=== PATIENT | female | born 1965 | race African-American/Black ===

== ENCOUNTER 2021-03-25 19:14 | Observation (INO) ==
[2021-03-25 19:23] VITALS: BMI 31.3
--- NOTE | 2021-03-25 21:41 | DR.NAUSEAF ---
HPI Time Seen Time Seen by Provider: 03/25/21 21:38 Primary Care Physician Primary Care Physician: GONZALEZ [place] Complaints Chief Complaint Doctors Comments: 55 y/po female presents with N/V since awakening this AM. Has vomited x 8, started with diarrhea just COURT ASSISTANT. No blood in either. + abdominal pain - diffuse, cramping, off/on. Does not radiate. Nothing makes it better, nothing makes it worse. Also pulled her back today, moving a rocking chair. Having lumbar discomfort, worse with moving. H/o lumbar surgery in the past. Recently treat for R ear infection, with augmentin (finished without GI upset). Feeling hot and cold, no known fever. Chief Complaint:: PT STATES SHE WOKE UP THIS MORNING NAUSEATED AND VOMITING AND CANT KEEP ANYTHING DOWN. PT DENIES ANY FEVER OR ANY OTHER SYMPTOMS. PT STATES SHE WAS MOVING A ROCKING CHAIR AND AFTER THAT HER BACK STARTED HURTING. PT HAS HAD BACK SURGERY IN THE PAST. 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 COVID-19 Coronavirus risk:travel/contact w/high risk person: No Has patient experienced Coronavirus symptoms: No Reviewed Nurses Notes Reviewed: Yes Source History Provided: Patient Mode of Arrival Mode of Arrival: Ambulatory Timing Onset of Chief Complaint: 03/25/21 PMH PMH Past Medical History: Yes Past Medical History: Asthma Past Surgical History: Yes Surgical History: Hysterectomy, Ortho Surgery and Tonsillectomy Past Surgical History Comment: GALLBLADDER, CYST REMOVED IN RT BREAST Family History History of Family Medical Conditions: Yes Family Medical History: Diabetes Mellitus and Hypertension Social History Does patient currently use any type of tobacco product: No Have you used tobacco products in the last 12 months: No Type of Tobacco Use: None Does any household member use tobacco: No Alcohol Use: None Do you use any recreational Drugs:: No Lives With: Spouse Lives Where: Home Infectious screening In the last 2 months have you had wt loss of >10#?: NO Have you had fever, night sweats or hemotysis?: No Have you traveled outside the country in the last 6 months?: No Isolation: Standard ROS Review of Systems Constitutional: Weakness Eyes: No Symptoms Reported ENTM: No Symptoms Reported Respiratoy: Non-Productive Cough Cardiovascular: No Symptoms Reported Gastrointestinal/Abdominal: Abdominal Pain, Diarrhea, Nausea and Vomiting Genitourinary: No Symptoms Reported Neurological: No Symptoms Reported Musculoskeletal: Back Pain Integumentary: No Symptoms Reported Hematologic/Lymphatic: No Symptoms Reported Psychiatric: No Symptoms Reported All Other Systems: Reviewed and Negative PE Vital Signs Vitals: Temperature 97.8 F Pulse Rate [Bilateral Radial] 82 Pulse Rate 71 Respiratory Rate 20 Blood Pressure [Right Arm] 157/74 Blood Pressure 135/66 O2 Sat by Pulse Oximetry 97 General Limitations: No Limitations General Appearance: Alert, In No Apparent Distress and Other (ppears uncomfortable) Head Head Exam: Normal Inspection Eyes Eye exam: Normal Appearance ENT ENT Exam: Normal Exam Neck Neck Exam: Normal Inspection Chest Chest Inspection: Normal Inspection Respiratory Respiratory Exam: Normal Lung Sounds Bilat; negative Accessory Muscle Use and Respiratory Distress Respiratory Exam: Bilateral: Clear to Auscultation Cardiovascular Cardiovascular Exam: Regular Rate, Normal Rhythm and Normal Heart Sounds Abdominal Exam Abdominal Exam: Normal Inspection, Normal Bowel Sounds, Soft and Tenderness (mild, in all quadrants); negative Guarding and Rebound Extremities Extremities Exam: Normal Inspection Back Back Exam: Normal Inspection and Tenderness (paralumbar, with increased muscle tone) Neurologic Neurological Exam: Alert, Oriented X3 and CN II-XII Intact; negative Motor Sensory Deficit Psychiatric Psychiatric Exam: Normal Affect Skin Skin Exam: Warm and Dry MDM Differential Diagnosis Differential Diagnosis: Considerations may Include:: Bowel Obstruction, Food Poisoning and Gastroenteritis COURSE Treatment Treatment: W/u initiated. Given IV fluids, IV zofran/toradol. Labs show acceptable CBC, U/A. CMP shows AST/ALT to each be 1,200. Lipase normal. Liver enzymes few months ago were normal. Pt has been immunized for hepatitis A and B in the past. No high risk for hepatitis C. Hepatits panel sent out. CT of the abd/pelvis with oral and IV contrast done, no acute abnormalities. Pain returning, ginve IV morphine, + helping. Recommend observation admission for further treatment. Discussed with Dr Hernandez, covering, accepts the admission. ROR Labs Reviewed Laboratory Results Reviewed?: Yes Result Diagrams: 03/25/21 21:54 03/25/21 21:54 Laboratory: WBC 4.6 X10^3/uL (3.6-10.0) 03/25/21 21:54 RBC 5.17 X10^6/uL (3.5-5.4) 03/25/21 21:54 Hgb 12.3 g/dL (12.0-16.0) 03/25/21 21:54 Hct 38.2 % (36.0-47.0) 03/25/21 21:54 MCV 73.8 fL (80.0-100.0) L 03/25/21 21:54 MCH 23.8 pg (27.0-34.0) L 03/25/21 21:54 MCHC 32.2 g/dL (33.0-35.0) L 03/25/21 21:54 RDW 14.2 % (11.6-16.5) 03/25/21 21:54 Plt Count 219 X10^3/uL (150.0-450.0) 03/25/21 21:54 Plt Count Comment Adequate (ADEQUATE) 03/25/21 21:54 MPV 8.4 fL (7.4-11.0) 03/25/21 21:54 Neut % (Auto) 73.7 % (42.0-75.0) 03/25/21 21:54 Lymph % (Auto) 18.3 % (21.0-51.0) L 03/25/21 21:54 [place] % (Auto) 5.7 % (0.0-13.0) 03/25/21 21:54 Eos % (Auto) 1.4 % (0.9-2.9) 03/25/21 21:54 Baso % (Auto) 0.9 % (0.2-1.0) 03/25/21 21:54 Neut # (Auto) 3.4 x10^3/uL (2.2-4.8) 03/25/21 21:54 Lymph # (Auto) 0.8 X10^3/uL (1.3-2.9) L 03/25/21 21:54 [place] # (Auto) 0.3 x10^3/uL (0.3-0.8) 03/25/21 21:54 Eos # (Auto) 0.1 x10^3/uL (0.0-0.2) 03/25/21 21:54 Baso # (Auto) 0.0 X10^3/uL (0.0-0.1) 03/25/21 21:54 Absolute Nucleated RBC 0.1 /100WBC 03/25/21 21:54 Plt Morphology Comment Normal (NORMAL) 03/25/21 21:54 RBC Morphology Abnormal (NORMAL) A 03/25/21 21:54 Microcytosis Slight A 03/25/21 21:54 Sodium 133 mmol/L (136-145) L 03/25/21 21:54 Corrected Sodium TNP 03/25/21 21:54 Potassium 3.9 mmol/L (3.5-5.1) 03/25/21 21:54 Chloride 97 mmol/L (98-107) L 03/25/21 21:54 Carbon Dioxide 27.0 mmol/L (21-32) 03/25/21 21:54 BUN 17 mg/dL (7-18) 03/25/21 21:54 Creatinine 0.66 mg/dL (0.55-1.02) 03/25/21 21:54 Est GFR (MDRD) Af Amer > 60 (>60) 03/25/21 21:54 Est GFR (MDRD) Non-Af > 60 (>60) 03/25/21 21:54 Glucose 110 mg/dL (65-99) H 03/25/21 21:54 Calcium 9.7 mg/dL (8.5-10.1) 03/25/21 21:54 Corrected Calcium TNP 03/25/21 21:54 Total Bilirubin 0.70 mg/dL (0.2-1.0) 03/25/21 21:54 AST 1251 Units/L (15-37) H 03/25/21 21:54 ALT 1254 Units/L (12-78) H 03/25/21 21:54 Alkaline Phosphatase 216 Units/L (46-116) H 03/25/21 21:54 Total Protein 8.1 g/dL (6.4-8.2) 03/25/21 21:54 Albumin 4.1 g/dL (3.4-5.0) 03/25/21 21:54 Globulin 4.0 g/dL (2.5-4.5) 03/25/21 21:54 Albumin/Globulin Ratio 1.0 Ratio (1.1-2.1) L 03/25/21 21:54 Lipase 75 Units/L (73-393) 03/25/21 21:54 Specimen Type Clean catch urine 03/25/21 21:50 Urine Color Yellow (YELLOW) 03/25/21 21:50 Urine Appearance Clear (CLEAR) 03/25/21 21:50 Urine pH 8.0 (5.0 - 8.0) 03/25/21 21:50 Ur Specific [place] 1.010 (1.000-1.030) 03/25/21 21:50 Urine Protein Negative (NEGATIVE) 03/25/21 21:50 Urine Glucose (UA) Negative (NEGATIVE) 03/25/21 21:50 Urine Ketones Negative (NEGATIVE) 03/25/21 21:50 Urine Occult Blood Negative (NEGATIVE) 03/25/21 21:50 Urine Nitrite Negative (NEGATIVE) 03/25/21 21:50 Urine Bilirubin Negative (NEGATIVE) 03/25/21 21:50 Urine Urobilinogen Normal (NORMAL) 03/25/21 21:50 Ur Leukocyte Esterase Negative (NEGATIVE) 03/25/21 21:50 SARS CoV-2 RNA Rapid GRANT Negative (NEGATIVE) 03/25/21 23:10 Other Results Comments: AST/ASLT - 1,200 each. Opioid Opioid Risk Tool Age (Isaias box if 16-45): No History of Preadolescent Sexual Abuse: No Total: 0 Total Score Risk Category: Low Risk Copyright: Tino VASQUEZ predicting aberrant behaviors Diagnosis Discharge Problem: Nausea and vomiting in adult patient, Hepatitis Abdominal pain Qualifiers: Abdominal location: generalized Qualified Code(s): R10.84 - Generalized abdominal pain
[2021-03-25] MEDS ORDERED: ZOFRAN INJ 4 MG VIAL IVP ONE (21:44)
[2021-03-25] MEDS ORDERED: TORADOL 30 MG VIAL IVP ONE (21:44)
[2021-03-25] MEDS ORDERED: NS 1,000 ML IV 1,000 ML IV ONE (21:44)
[2021-03-25] MEDS ORDERED: TORADOL 30 MG VIAL ONE (21:59)
[2021-03-25] MEDS ORDERED: ZOFRAN INJ 4 MG VIAL ONE (21:59)
[2021-03-25] MEDS ORDERED: NS 1,000 ML IV 1,000 ML ONE (21:59)
[2021-03-25 22:06] LABS: BILIRUBIN,URINE NEGATIVE (NEGATIVE); BLOOD/HEMOGLOBIN,URINE NEGATIVE (NEGATIVE); GLUCOSE, URINE NEGATIVE (NEGATIVE); KETONES,URINE NEGATIVE (NEGATIVE); LEUKOCYTE ESTERASE ,URINE NEGATIVE (NEGATIVE); NITRITES,URINE NEGATIVE (NEGATIVE); PROTEIN,URINE NEGATIVE (NEGATIVE); UROBILINOGEN,URINE NORMAL (NORMAL)
[2021-03-25 22:06] LABS: BASOPHILS % (AUTO) 0.9 % (0.2-1.0); EOSINOPHILS # (AUTO) 0.1 x10^3/uL (0.0-0.2); EOSINOPHILS % (AUTO) 1.4 % (0.9-2.9); HEMATOCRIT 38.2 % (36.0-47.0); HEMOGLOBIN 12.3 g/dL (12.0-16.0); LYMPHOCYTES # (AUTO) 0.8 X10^3/uL (1.3-2.9); LYMPHOCYTES % (AUTO) 18.3 % (21.0-51.0); MEAN CORPUSCULAR HEMOGLOBIN 23.8 pg (27.0-34.0); MEAN CORPUSCULAR HGB CONC 32.2 g/dL (33.0-35.0); MEAN CORPUSCULAR VOLUME 73.8 fL (80.0-100.0); MEAN PLATELET VOLUME 8.4 fL (7.4-11.0); MONOCYTES # (AUTO) 0.3 x10^3/uL (0.3-0.8); MONOCYTES % (AUTO) 5.7 % (0.0-13.0); NEUTROPHILS # (AUTO) 3.4 x10^3/uL (2.2-4.8); NEUTROPHILS % (AUTO) 73.7 % (42.0-75.0); PLATELET COUNT 219 X10^3/uL (150.0-450.0); RED BLOOD COUNT 5.17 X10^6/uL (3.5-5.4); RED CELL DISTRIBUTION WIDTH 14.2 % (11.6-16.5); WHITE BLOOD COUNT 4.6 X10^3/uL (3.6-10.0)
[2021-03-25 22:16] LABS: APPEARANCE,URINE CLEAR (CLEAR); COLOR,URINE YELLOW (YELLOW)
[2021-03-25 22:19] LABS: PLATELET MORPHOLOGY COMMENT NORMAL (NORMAL)
[2021-03-25 22:20] LABS: MICROCYTOSIS SLIGHT
[2021-03-25 22:21] LABS: ALBUMIN 4.1 g/dL (3.4-5.0); ALKALINE PHOSPHATASE 216 Units/L (46-116); BLOOD UREA NITROGEN 17 mg/dL (7-18); CALCIUM 9.7 mg/dL (8.5-10.1); CHLORIDE 97 mmol/L (98-107); CREATININE 0.66 mg/dL (0.55-1.02); LIPASE 75 Units/L (73-393); SODIUM 133 mmol/L (136-145); TOTAL PROTEIN 8.1 g/dL (6.4-8.2); eGFR NON BLACK RACES > 60 (>60)
[2021-03-25 22:34] LABS: ALANINE AMINOTRANSFERASE 1254 Units/L (12-78); ASPARTATE AMINO TRANSFERASE 1251 Units/L (15-37)
[2021-03-25] MEDS ORDERED: NS 100 ML IV 100 ML ONE (22:58)
[2021-03-26] MEDS ORDERED: NS 1,000 ML IV 1,000 ML IV ONE (00:30)
[2021-03-26] MEDS ORDERED: NS 1,000 ML IV 1,000 ML ONE (00:41)
[2021-03-26] MEDS ORDERED: MORPHINE SULFATE INJ 4 MG IVP ONE (02:11)
[2021-03-26] MEDS ORDERED: MORPHINE SULFATE INJ 4 MG ONE (02:21)
--- NOTE | 2021-03-26 02:43 | CT ---
STUDY: CT ABDOMEN AND PELVIS WITH IV CONTRASTCOMPARISON: NoneTECHNIQUE: Axial images were acquired of the abdomen and pelvis with IV contrast. Sagittal and coronal reformatted images were provided. All images were reviewed in a variety of windows and levels.RADIATION REDUCTION TECHNIQUE: Automated exposure control, adjustment of the mA and/or kV according to patient size, or iterative reconstruction techniques were used.HISTORY: WOKE UP THIS MORNING NAUSEATED AND VOMITING AND CANT KEEP ANYTHING DOWN. PT DENIES ANY FEVER OR ANY OTHER SYMPTOMS. PT STATES SHE WAS MOVING A ROCKING CHAIR AND AFTER THAT HER BACK STARTED HURTING.FINDINGS:LOWER THORAX: The visualized lower lung zones are clear. The heart size is within normal limits. There is no evidence of a pericardial effusion.LIVER: No intrahepatic focal lesions are seen. No evidence of intrahepatic or extrahepatic duct dilation.GALLBLADDER: The gallbladder has been surgically removed.SPLEEN: The spleen enhances homogenously and is unremarkable.PANCREAS: The pancreas enhances homogenously and is unremarkable.AGRENAL GLANDS: The adrenal glands enhance homogenously and are unremarkable.: The kidneys enhance homogenously. Their collecting system is of normal caliber.The patient is status post hysterectomy.URINARY BLADDER: The urinary bladder is unremarkable. There are no soft tissue masses seen in the urinary bladder.VESSELS: The abdominal aorta is normal in size without evidence of aneurysm or dissection. The celiac artery, superior mesenteric artery, cachil dehe renal arteries, and inferior mesenteric artery are patent.GI: Postsurgical changes seen the stomach.Please correlate with patient's past surgical history. The portions small appears grossly few scattered diverticula are seen without evidence of diverticulitis. There are no inflammatory changes seen in the right lower quadrant to suggest secondary signs of acute appendicitis. The appendix is not visualized on this exam.LYMPHNODES AND MESSENTERY: There is no evidence of retroperitoneal lymphadenopathy.BONES: The visualized bones demonstrate degenerative changes. There are no concerning lytic or blastic lesions identified. Postsurgical changes of the lower lumbar spine is noted.IMPRESSION:- Status post cholecystectomy and hysterectomy- No evidence of obstructive uropathy- No evidence of diverticulitis- Postsurgical changes in the stomach are seen. This may be from gastric bypass. Please correlate with patient's past surgical history.Electronically signed by: Nabil Buchanan (Mar 26, 2021 02:41:54)
[2021-03-26] MEDS ORDERED: ZOFRAN INJ 4 MG VIAL IVP ONE (04:54)
[2021-03-26] MEDS ORDERED: ZOFRAN INJ 4 MG VIAL ONE ×2 (04:55→07:47)
[2021-03-26] MEDS ORDERED: D5 1/2 NS 1,000 ML 1,000 ML IV ONE (06:18)
[2021-03-26] MEDS: D5 1/2 NS 1,000 ML 1,000 ML IV SCH ×3 (06:26→22:00)
[2021-03-26] MEDS: ZOFRAN INJ 4 MG VIAL IVP PRN (07:50)
[2021-03-26 08:41] LABS: BASOPHILS % (AUTO) 0.8 % (0.2-1.0); EOSINOPHILS # (AUTO) 0.1 x10^3/uL (0.0-0.2); HEMATOCRIT 36.5 % (36.0-47.0); HEMOGLOBIN 11.5 g/dL (12.0-16.0); LYMPHOCYTES # (AUTO) 1.4 X10^3/uL (1.3-2.9); LYMPHOCYTES % (AUTO) 33.8 % (21.0-51.0); MEAN CORPUSCULAR HEMOGLOBIN 23.4 pg (27.0-34.0); MEAN CORPUSCULAR HGB CONC 31.4 g/dL (33.0-35.0); MEAN CORPUSCULAR VOLUME 74.6 fL (80.0-100.0); MEAN PLATELET VOLUME 8.5 fL (7.4-11.0); MONOCYTES # (AUTO) 0.3 x10^3/uL (0.3-0.8); MONOCYTES % (AUTO) 7.9 % (0.0-13.0); NEUTROPHILS # (AUTO) 2.2 x10^3/uL (2.2-4.8); NEUTROPHILS % (AUTO) 54.5 % (42.0-75.0); PLATELET COUNT 188 X10^3/uL (150.0-450.0); RED BLOOD COUNT 4.89 X10^6/uL (3.5-5.4); RED CELL DISTRIBUTION WIDTH 14.2 % (11.6-16.5)
[2021-03-26 08:44] LABS: ALANINE AMINOTRANSFERASE 852 Units/L (12-78); ALBUMIN 3.5 g/dL (3.4-5.0); ALKALINE PHOSPHATASE 186 Units/L (46-116); ASPARTATE AMINO TRANSFERASE 494 Units/L (15-37); BLOOD UREA NITROGEN 13 mg/dL (7-18); CALCIUM 8.9 mg/dL (8.5-10.1); CHLORIDE 102 mmol/L (98-107); CREATININE 0.68 mg/dL (0.55-1.02); SODIUM 137 mmol/L (136-145); TOTAL PROTEIN 7.3 g/dL (6.4-8.2); eGFR NON BLACK RACES > 60 (>60)
[2021-03-26 08:53] LABS: MICROCYTOSIS SLIGHT; PLATELET MORPHOLOGY COMMENT NORMAL (NORMAL)
[2021-03-26] MEDS ORDERED: PHENERGAN INJ 25 MG IM ONE (08:59)
[2021-03-26] MEDS: PHENERGAN INJ 25 MG IM PRN (09:05)
[2021-03-26] MEDS: SILVADENE TOP SCH ×2 (09:09→20:55)
--- NOTE | 2021-03-26 11:18 | DR.H&P ---
H&P History & Physical for Day of: H&P Date: 03/26/21 Chief Complaint Chief Complaint: Nausea & Vomiting/ Back Pain Allergies Allergies Allergy/AdvReac Type Severity Reaction Status Date / Time No Known Drug Allergies Allergy Verified 10/27/20 21:22 History of Present Illness History of Present Illness: This is a 55-year-old Female who presented to the [facility] ED with 1 day history of nausea and vomiting. It started on the morning of 03/25/21. She vomited 8 times and now she has diarrhea. She has recently taken Augmentin for a right ear infection. She also reports increased low back pain. Her back pain is chronic as she has had back and neck surgeries in the past years. Work-up in the ED revealed she had significantly elevated LFT's of over a 1000 each. The ED physician ordered a Hepatitis panel. She is currently receiving IVF and Zofran for nausea and Toradol for chronic low back pain. Will plan on consulting Dr. Herve GONZALEZ for any further workup related to her abnormal LFT's. Past Medical History Past Medical History: Asthma Past Surgical History Surgical History: , Hysterectomy, Ortho Surgery and Tonsillectomy Family History Family Medical History: Diabetes Mellitus and Hypertension Social History Does patient currently use any type of tobacco product: No Have you used tobacco products in the last 12 months: No Type of Tobacco Use: None Does any household member use tobacco: No Alcohol Use: None Drug Use: None Medications Home Medications: No Known Drug Allergies Allergy (Verified 10/27/20 21:22) Labs Result Diagrams: 03/26/21 08:27 03/26/21 08:27 Labs: Laboratory WBC 4.0 X10^3/uL (3.6-10.0) 03/26/21 08:27 RBC 4.89 X10^6/uL (3.5-5.4) 03/26/21 08:27 Hgb 11.5 g/dL (12.0-16.0) L 03/26/21 08:27 Hct 36.5 % (36.0-47.0) 03/26/21 08:27 MCV 74.6 fL (80.0-100.0) L 03/26/21 08:27 MCH 23.4 pg (27.0-34.0) L 03/26/21 08:27 MCHC 31.4 g/dL (33.0-35.0) L 03/26/21 08: RDW 14.2 % (11.6-16.5) 03/26/21 08:27 Plt Count 188 X10^3/uL (150.0-450.0) 03/26/21 08:27 Plt Count Comment Adequate (ADEQUATE) 03/26/21 08: MPV 8.5 fL (7.4-11.0) 03/26/21 08:27 Neut % (Auto) 54.5 % (42.0-75.0) 03/26/21 08: Lymph % (Auto) 33.8 % (21.0-51.0) 03/26/21 08: [place] % (Auto) 7.9 % (0.0-13.0) 03/26/21 08: Eos % (Auto) 3.0 % (0.9-2.9) H 03/26/21 08: Baso % (Auto) 0.8 % (0.2-1.0) 03/26/21 08:27 Neut # (Auto) 2.2 x10^3/uL (2.2-4.8) 03/26/21 08:27 Lymph # (Auto) 1.4 X10^3/uL (1.3-2.9) 03/26/21 08:27 [place] # (Auto) 0.3 x10^3/uL (0.3-0.8) 03/26/21 08:27 Eos # (Auto) 0.1 x10^3/uL (0.0-0.2) 03/26/21 08:27 Baso # (Auto) 0.0 X10^3/uL (0.0-0.1) 03/26/21 08:27 Absolute Nucleated RBC 0.1 /100WBC 03/26/21 08:27 Plt Morphology Comment Normal (NORMAL) 03/26/21 08: RBC Morphology Abnormal (NORMAL) A 03/26/21 08:27 Microcytosis Slight A 03/26/21 08:27 Sodium 137 mmol/L (136-145) 03/26/21 08:27 Corrected Sodium TNP 03/26/21 08:27 Potassium 3.8 mmol/L (3.5-5.1) 03/26/21 08:27 Chloride 102 mmol/L (98-107) 03/26/21 08:27 Carbon Dioxide 29.0 mmol/L (21-32) 03/26/21 08:27 BUN 13 mg/dL (7-18) 03/26/21 08:27 Creatinine 0.68 mg/dL (0.55-1.02) 03/26/21 08:27 Est GFR (MDRD) Af Amer > 60 (>60) 03/26/21 08:27 Est GFR (MDRD) Non-Af > 60 (>60) 03/26/21 08:27 Glucose 93 mg/dL (65-99) 03/26/21 08:27 Calcium 8.9 mg/dL (8.5-10.1) 03/26/21 08:27 Corrected Calcium TNP 03/26/21 08:27 Total Bilirubin 0.60 mg/dL (0.2-1.0) 03/26/21 08:27 AST 494 Units/L (15-37) H 03/26/21 08:27 ALT 852 Units/L (12-78) H 03/26/21 08:27 Alkaline Phosphatase 186 Units/L (46-116) H 03/26/21 08:27 Total Protein 7.3 g/dL (6.4-8.2) 03/26/21 08:27 Albumin 3.5 g/dL (3.4-5.0) 03/26/21 08:27 Globulin 3.8 g/dL (2.5-4.5) 03/26/21 08:27 Albumin/Globulin Ratio 0.9 Ratio (1.1-2.1) L 03/26/21 08:27 Lipase 75 Units/L (73-393) 03/25/21 21:54 Specimen Type Clean catch urine 03/25/21 21:50 Urine Color Yellow (YELLOW) 03/25/21 21:50 Urine Appearance Clear (CLEAR) 03/25/21 21:50 Urine pH 8.0 (5.0 - 8.0) 03/25/21 21:50 Ur Specific [place] 1.010 (1.000-1.030) 03/25/21 21:50 Urine Protein Negative (NEGATIVE) 03/25/21 21:50 Urine Glucose (UA) Negative (NEGATIVE) 03/25/21 21:50 Urine Ketones Negative (NEGATIVE) 03/25/21 21:50 Urine Occult Blood Negative (NEGATIVE) 03/25/21 21:50 Urine Nitrite Negative (NEGATIVE) 03/25/21 21:50 Urine Bilirubin Negative (NEGATIVE) 03/25/21 21:50 Urine Urobilinogen Normal (NORMAL) 03/25/21 21:50 Ur Leukocyte Esterase Negative (NEGATIVE) 03/25/21 21:50 SARS CoV-2 RNA Rapid GRANT Negative (NEGATIVE) 03/25/21 23:10 Review of Systems Constitutional: Weakness Eyes: No Symptoms Reported ENT: No Symptoms Reported Respiratory: No Symptoms Reported Cardiovascular: No Symptoms Reported Gastrointestinal: Nausea, Vomiting and Diarrhea Genitourinary: No Symptoms Reported Musculoskeletal: Back Pain and Neck Pain Skin: Wound Neurological: No Symptoms Reported Physical Exam Vital Signs: Temperature 98.2 F Pulse Rate [Right] 82 Pulse Rate [Bilateral Radial] 82 Pulse Rate 71 Respiratory Rate 16 Blood Pressure [Right Arm] 173/75 Blood Pressure 135/66 O2 Sat by Pulse Oximetry 100 Oriented: Normal Eyes: Normal Ear: Normal Nose: Normal Throat: Normal Respiratory: Clear Throughout Cardiovascular: Normal : Normal Auscultation: Bowel Sounds: Normal Palpation: Normal Tenderness: Normal Skin: Vesicular Musculoskeletal: Back:Lumbar Psychiatric: Normal Mood Description: Calm Affect: Normal Speech Pattern: Clear Assessment/Plan (1) Nausea and vomiting in adult patient: Narrative Support Text: Sammie is not working patient reports. Status: Acute Plan: Will add Phenergan for nauesa. (2) Hepatitis: Status: Acute Plan: Consulting Dr. Herve GONZALEZ. (3) HTN (hypertension): Status: Acute Plan: Will start patient on Amlodipine 10 mg daily. (4) Abdominal pain: Qualifiers: Abdominal location: generalized Qualified Code(s): R10.84 - Generalized abdominal pain Status: Acute (5) Chronic low back pain: Status: Acute Plan: IV Toradol. (6) Chronic neck pain: Status: Acute Plan: IV Toradol (7) Abnormal LFTs: Status: Acute (8) Nausea & vomiting: Status: Acute Plan: Added PRN Phenergan this am. (9) Diarrhea: Status: Acute Plan: Will check for C. Diff. Review H&P Reviewed: Yes Patient was examined?: Yes
--- NOTE | 2021-03-26 12:22 | DR.CONSULT ---
Consult - Consultation for Day of: Date: 03/26/21 - Chief Complaint Chief Complaint: Patient referred for abdominal pain, nausea, vomiting and diarrhea. Patient with complaints of epigastric pain, nausea and vomiting that started yesterday. - History of Present Illness History of Present Illness: Patient referred for abdominal pain, nausea, vomiting and diarrhea. Patient with complaints of epigastric pain x 1 month, nausea and vomiting that started yesterday. Patient denies dysphagia, dyspepsia, constipation, diarrhea, melena and hematochezia. Last colon was within the last [address] Mendoza patient states she had polyps. Last EGD was within the last 5 years with verona states that she has nicki esophagitis and esophageal stricture. Abdomen and pelvis CT showed Status post cholecystectomy and. hysterectomy, No evidence of obstructive uropathy, No evidence of diverticulitis, Postsurgical changes in the stomach are seen. This may be. from gastric bypass. Please correlate with patient's past surgical history. Hgb 11.5, hct 36.5, Plt 188, BUN 13, Creatinine 0.68, T. Bili 0.6, AST 494, ALT 852, ALP 186 - Past Medical History Past Medical History: Asthma - Past Surgical History Surgical History: , Cholecystectomy, Hysterectomy, Ortho Surgery, Tonsillectomy, Other (gastric bypass, Cyst removal from breat, Back Surgery, Neck Surgery x2) - Family History Family Medical History: Diabetes Mellitus, Hypertension - Social History Does patient currently use any type of tobacco product: No Have you used tobacco products in the last 12 months: No Type of Tobacco Use: None Does any household member use tobacco: No Alcohol Use: None Drug Use: None - Medications Home Medications: No Known Drug Allergies Allergy (Verified 10/27/20 21:22) - Review of Systems Gastrointestinal: See HPI, Nausea, Vomiting, Abdominal Pain (epigastric). denies: Diarrhea, Constipation, Melena, Hematochezia, Other - Physical Exam Vital Signs: Temperature 98.2 F Pulse Rate [Right] 82 Pulse Rate [Bilateral Radial] 82 Pulse Rate 71 Respiratory Rate 16 Blood Pressure [Right Arm] 173/75 Blood Pressure 135/66 O2 Sat by Pulse Oximetry 100 Oriented: Normal Eyes: Normal Ear: Normal Throat: Normal Respiratory: Clear Throughout Cardiovascular: Normal Auscultation: Bowel Sounds: Normal Palpation: Normal, Other (no distnetion). negative: Spleen Enlarged, Liver Enlarged, Mass Pulsatile Tenderness: Normal (non tender) Skin: Normal Musculoskeletal: Normal Psychiatric: Normal Mood Description: Calm Affect: Normal Speech Pattern: Clear, Appropriate - Plan Plan: Assessment. 1. Nausea, vomiting, epigastric pain r/o gastric ulcer. 2. Abnormal LFTs. 3. History fo colon polyps. Plan. 1. Protonix IV, Zofran IV, EGD today. 2. Abnormal LFT panel, Hepatitis Profile, STE[place]G Fibrosure, Monitor LFTs. Plan reviewed with Dr. Edgar - Allergies Allergies/Adverse Reactions: Allergies Allergy/AdvReac Type Severity Reaction Status Date / Time No Known Drug Allergies Allergy Verified 10/27/20 21:22
[2021-03-26 13:57] LABS: IRON 118 ug/dL (50-175)
[2021-03-26] MEDS ORDERED: LR 1,000 ML IV 1,000 ML IV ONE (15:03)
[2021-03-26] MEDS ORDERED: DIPRIVAN VIAL 20 ML ONE (15:08)
[2021-03-26] MEDS: NEURONTIN CAP 100 MG PO SCH ×2 (17:07→22:00)
[2021-03-26] MEDS: DIFLUCAN PO SCH (17:08)
[2021-03-26] MEDS: NORVASC TAB 10 MG PO SCH (17:09)
[2021-03-26] MEDS: PriLOSEC PO SCH (20:55)
[2021-03-26] MEDS: ZANAFLEX PO PRN (20:55)
[2021-03-27 04:56] LABS: BASOPHILS % (AUTO) 0.7 % (0.2-1.0); EOSINOPHILS # (AUTO) 0.1 x10^3/uL (0.0-0.2); EOSINOPHILS % (AUTO) 2.5 % (0.9-2.9); HEMATOCRIT 33.2 % (36.0-47.0); HEMOGLOBIN 10.5 g/dL (12.0-16.0); LYMPHOCYTES # (AUTO) 1.8 X10^3/uL (1.3-2.9); LYMPHOCYTES % (AUTO) 42.2 % (21.0-51.0); MEAN CORPUSCULAR HEMOGLOBIN 23.5 pg (27.0-34.0); MEAN CORPUSCULAR HGB CONC 31.7 g/dL (33.0-35.0); MEAN CORPUSCULAR VOLUME 74.3 fL (80.0-100.0); MEAN PLATELET VOLUME 8.6 fL (7.4-11.0); MONOCYTES # (AUTO) 0.3 x10^3/uL (0.3-0.8); MONOCYTES % (AUTO) 7.8 % (0.0-13.0); NEUTROPHILS % (AUTO) 46.8 % (42.0-75.0); PLATELET COUNT 183 X10^3/uL (150.0-450.0); RED BLOOD COUNT 4.47 X10^6/uL (3.5-5.4); RED CELL DISTRIBUTION WIDTH 14.3 % (11.6-16.5); WHITE BLOOD COUNT 4.3 X10^3/uL (3.6-10.0)
[2021-03-27 05:10] LABS: ALANINE AMINOTRANSFERASE 562 Units/L (12-78); ALBUMIN 3.2 g/dL (3.4-5.0); ALKALINE PHOSPHATASE 146 Units/L (46-116); ASPARTATE AMINO TRANSFERASE 155 Units/L (15-37); BLOOD UREA NITROGEN 11 mg/dL (7-18); CALCIUM 8.9 mg/dL (8.5-10.1); CARBON DIOXIDE 28.9 mmol/L (21-32); CHLORIDE 105 mmol/L (98-107); COR CA(FOR HYPOALB) 9.5 mg/dL (8.5-10.1); CREATININE 0.61 mg/dL (0.55-1.02); SODIUM 139 mmol/L (136-145); TOTAL PROTEIN 6.5 g/dL (6.4-8.2); eGFR NON BLACK RACES > 60 (>60)
[2021-03-27 05:36] LABS: HYPOCHROMASIA 1+; MICROCYTOSIS 1+; PLATELET MORPHOLOGY COMMENT NORMAL (NORMAL)
[2021-03-27] MEDS: D5 1/2 NS 1,000 ML 1,000 ML IV SCH ×3 (05:55→21:20)
[2021-03-27] MEDS: ZANAFLEX PO PRN ×3 (05:56→21:20)
[2021-03-27] MEDS: NEURONTIN CAP 100 MG PO SCH ×3 (05:56→21:20)
[2021-03-27] MEDS: DIFLUCAN PO SCH (08:12)
[2021-03-27] MEDS: PriLOSEC PO SCH ×2 (08:13→21:20)
[2021-03-27] MEDS: NORVASC TAB 10 MG PO SCH (08:13)
[2021-03-27] MEDS: SILVADENE TOP SCH ×2 (08:13→21:20)
[2021-03-27] MEDS: ZOFRAN INJ 4 MG VIAL IVP PRN (08:40)
[2021-03-27] MEDS ORDERED: DIFLUCAN PO SCH (09:00)
[2021-03-27] MEDS: PHENERGAN INJ 25 MG IM PRN (09:36)
--- NOTE | 2021-03-27 14:56 | PCM.PROG ---
Progress Note Progress Note for Day of Date of Exam: 03/27/21 Subjective Subjective: Patient feels better this morning. She is still having some nausea at this time. Had EGD this am which showed Teresa Esophagitis, distal Esophagitis, mild stricture and erosive gastritis. LFT's are trending down but have not normalized. Dr. Edgar has ordered additional labs regarding Abnormal LFT's. Will continue treatment and recheck LFT's in am. Plan on discharge home in am. Past Medical Family Social History Past Med/Fam/Surg Hx: No changes since H&P Allergies: Allergies No Known Drug Allergies Allergy (Verified 10/27/20 21:22) Review of Systems ROS: No change since H&P Vital Signs and I&O's Vital Signs: Temperature 97.9 F Pulse Rate [Right] 76 Pulse Rate [Bilateral Radial] 82 Pulse Rate 71 Respiratory Rate 24 Blood Pressure [Right Arm] 143/79 Blood Pressure 135/66 O2 Sat by Pulse Oximetry 100 Intake and Output: Intake & Output 03/25/21 03/26/21 03/27/21 03/28/21 11:59 11:59 11:59 11:59 Intake Total 1250 / 1250 3600 / 3600 Balance 1250 / 1250 3600 / 3600 Physical Exam Oriented: Normal Eyes: Normal Ear: Normal Nose: Normal Throat: Normal Respiratory: Normal Cardiovascular: Normal : Normal Auscultation: Bowel Sounds: Normal Palpation: Normal Tenderness: Normal (non tender) Skin: Normal Musculoskeletal: Normal Psychiatric: Normal Mood Description: Calm Affect: Normal Speech Pattern: Clear and Appropriate Laboratory and Diagnostics Result Diagrams: 03/27/21 04:35 03/27/21 04:35 Labs: Laboratory WBC 4.3 X10^3/uL (3.6-10.0) 03/27/21 04:35 RBC 4.47 X10^6/uL (3.5-5.4) 03/27/21 04:35 Hgb 10.5 g/dL (12.0-16.0) L 03/27/21 04:35 Hct 33.2 % (36.0-47.0) L 03/27/21 04:35 MCV 74.3 fL (80.0-100.0) L 03/27/21 04:35 MCH 23.5 pg (27.0-34.0) L 03/27/21 04:35 MCHC 31.7 g/dL (33.0-35.0) L 03/27/21 04:35 RDW 14.3 % (11.6-16.5) 03/27/21 04:35 Plt Count 183 X10^3/uL (150.0-450.0) 03/27/21 04:35 Plt Count Comment Adequate (ADEQUATE) 03/27/21 04:35 MPV 8.6 fL (7.4-11.0) 03/27/21 04:35 Neut % (Auto) 46.8 % (42.0-75.0) 03/27/21 04:35 Lymph % (Auto) 42.2 % (21.0-51.0) 03/27/21 04:35 [place] % (Auto) 7.8 % (0.0-13.0) 03/27/21 04:35 Eos % (Auto) 2.5 % (0.9-2.9) 03/27/21 04:35 Baso % (Auto) 0.7 % (0.2-1.0) 03/27/21 04:35 Neut # (Auto) 2.0 x10^3/uL (2.2-4.8) L 03/27/21 04:35 Lymph # (Auto) 1.8 X10^3/uL (1.3-2.9) 03/27/21 04:35 [place] # (Auto) 0.3 x10^3/uL (0.3-0.8) 03/27/21 04:35 Eos # (Auto) 0.1 x10^3/uL (0.0-0.2) 03/27/21 04:35 Baso # (Auto) 0.0 X10^3/uL (0.0-0.1) 03/27/21 04:35 Absolute Nucleated RBC 0.1 /100WBC 03/27/21 04:35 Plt Morphology Comment Normal (NORMAL) 03/27/21 04:35 RBC Morphology Abnormal (NORMAL) A 03/27/21 04:35 Hypochromasia 1+ A 03/27/21 04:35 Microcytosis 1+ A 03/27/21 04:35 Sodium 139 mmol/L (136-145) 03/27/21 04:35 Corrected Sodium TNP 03/27/21 04:35 Potassium 3.6 mmol/L (3.5-5.1) 03/27/21 04:35 Chloride 105 mmol/L (98-107) 03/27/21 04:35 Carbon Dioxide 28.9 mmol/L (21-32) 03/27/21 04:35 BUN 11 mg/dL (7-18) 03/27/21 04:35 Creatinine 0.61 mg/dL (0.55-1.02) 03/27/21 04:35 Est GFR (MDRD) Af Amer > 60 (>60) 03/27/21 04:35 Est GFR (MDRD) Non-Af > 60 (>60) 03/27/21 04:35 Glucose 100 mg/dL (65-99) H 03/27/21 04:35 POC Glucose (mg/dL) 76 mg/dL (65-99) 03/27/21 04:22 Calcium 8.9 mg/dL (8.5-10.1) 03/27/21 04:35 Corrected Calcium 9.5 mg/dL (8.5-10.1) 03/27/21 04:35 Iron 118 ug/dL (50-175) 03/26/21 12:35 Transferrin 261 mg/dL (202-364) 03/26/21 12:35 Ferritin 143 ng/mL (8-252) 03/26/21 12:35 Total Bilirubin 0.40 mg/dL (0.2-1.0) 03/27/21 04:35 AST 155 Units/L (15-37) H 03/27/21 04:35 ALT 562 Units/L (12-78) H 03/27/21 04:35 Alkaline Phosphatase 146 Units/L (46-116) H 03/27/21 04:35 Total Protein 6.5 g/dL (6.4-8.2) 03/27/21 04:35 Albumin 3.2 g/dL (3.4-5.0) L 03/27/21 04:35 Globulin 3.3 g/dL (2.5-4.5) 03/27/21 04:35 Albumin/Globulin Ratio 1.0 Ratio (1.1-2.1) L 03/27/21 04:35 Lipase 75 Units/L (73-393) 03/25/21 21:54 Specimen Type Clean catch urine 03/25/21 21:50 Urine Color Yellow (YELLOW) 03/25/21 21:50 Urine Appearance Clear (CLEAR) 03/25/21 21:50 Urine pH 8.0 (5.0 - 8.0) 03/25/21 21:50 Ur Specific [place] 1.010 (1.000-1.030) 03/25/21 21:50 Urine Protein Negative (NEGATIVE) 03/25/21 21:50 Urine Glucose (UA) Negative (NEGATIVE) 03/25/21 21:50 Urine Ketones Negative (NEGATIVE) 03/25/21 21:50 Urine Occult Blood Negative (NEGATIVE) 03/25/21 21:50 Urine Nitrite Negative (NEGATIVE) 03/25/21 21:50 Urine Bilirubin Negative (NEGATIVE) 03/25/21 21:50 Urine Urobilinogen Normal (NORMAL) 03/25/21 21:50 Ur Leukocyte Esterase Negative (NEGATIVE) 03/25/21 21:50 Stl C. diff Tox B Gene Negative (NEGATIVE) 03/26/21 18:25 Stl C. diff [id number] Presumptive negative (NEGATIVE) 03/26/21 18:25 Stool H. pylori Ag Negative (NEGATIVE) 03/26/21 18:25 SARS CoV-2 RNA Rapid GRANT Negative (NEGATIVE) 03/25/21 23:10 Tissue Pathology To follow 03/26/21 15:12 Radiology Reviewed: Yes Plan (1) Nausea and vomiting in adult patient: Status: Acute Narrative Support Text: Much improved. Plan: Will add Phenergan for nauesa. (2) Hepatitis: Status: Acute Plan: CMP in am. If LFT's continue to improve will discharge home in am. (3) HTN (hypertension): Status: Acute Narrative Support Text: Much improved. Plan: Amlodipine 10 mg daily. (4) Abdominal pain: Status: Acute Qualifiers: Abdominal location: generalized Qualified Code(s): R10.84 - Generalized abdominal pain (5) Chronic low back pain: Status: Acute Plan: IV Toradol. (6) Chronic neck pain: Status: Acute Plan: IV Toradol (7) Abnormal LFTs: Status: Acute (8) Nausea & vomiting: Status: Acute Plan: Added PRN Phenergan this am. (9) Diarrhea: Status: Resolved Plan: C. Diff. negative. (10) Teresa esophagitis: Status: Acute Plan: Diflucan (11) Esophagitis: Status: Acute Plan: omeprazole 40 mg bid (12) Erosive gastritis: Status: Acute Plan: Omeprazole 40 mg bid (13) Esophageal stricture: Status: Acute Plan: patient underwent dilation.
[2021-03-28 05:26] LABS: ALANINE AMINOTRANSFERASE 371 Units/L (12-78); ALBUMIN 2.9 g/dL (3.4-5.0); ALKALINE PHOSPHATASE 126 Units/L (46-116); ASPARTATE AMINO TRANSFERASE 54 Units/L (15-37); BLOOD UREA NITROGEN 10 mg/dL (7-18); CALCIUM 8.5 mg/dL (8.5-10.1); CARBON DIOXIDE 31.3 mmol/L (21-32); CHLORIDE 106 mmol/L (98-107); COR CA(FOR HYPOALB) 9.4 mg/dL (8.5-10.1); CREATININE 0.77 mg/dL (0.55-1.02); SODIUM 141 mmol/L (136-145); eGFR NON BLACK RACES > 60 (>60)
[2021-03-28] MEDS: NEURONTIN CAP 100 MG PO SCH (05:54)
[2021-03-28] MEDS: ZANAFLEX PO PRN (05:54)
[2021-03-28] MEDS: D5 1/2 NS 1,000 ML 1,000 ML IV SCH (05:54)
[2021-03-28 08:21] VITALS: BP 148/67
[2021-03-28] MEDS: NORVASC TAB 10 MG PO SCH (08:39)
[2021-03-28] MEDS: PriLOSEC PO SCH (08:39)
[2021-03-28] MEDS: SILVADENE TOP SCH (08:39)
[2021-03-28] MEDS: DIFLUCAN PO SCH (08:39)
[2021-04-01 06:45] LABS: HEPATITIS B SURFACE ANTIGEN Negative (Negative)
[2021-04-01 06:46] LABS: ANTI-NUCLEAR ANTIBODY TEST None Detected (None Detected)
--- NOTE | 2021-04-04 11:30 | PCM.DCPLAN ---
DISCHARGE SUMMARY Admission Date Date of Admission: 03/26/21 Discharge Date Discharge Date: 03/28/21 Admission Diagnoses (1) Nausea and vomiting in adult patient: Status: Acute (2) Hepatitis: Status: Acute (3) HTN (hypertension): Status: Acute (4) Abdominal pain: Status: Acute (5) Chronic low back pain: Status: Acute (6) Chronic neck pain: Status: Acute (7) Abnormal LFTs: Status: Acute (8) Nausea & vomiting: Status: Acute (9) Diarrhea: Status: Resolved (10) Teresa esophagitis: Status: Acute (11) Esophagitis: Status: Acute (12) Erosive gastritis: Status: Acute (13) Esophageal stricture: Status: Acute Discharge Diagnoses Discharge Diagnosis: 1. Elevated LFT's- Now trending down 2. Nausea and Vomiting- Resolved 3. Mild Teresa Esophagitis 4. Distal Esophagitis 5. Mild Esophageal Stricture 6. Erosive Gastritis 7. HTN- Stable 8. Acute on Chronic Low Back Pain s/p surgery years ago 9. Chronic Neck Pain s/p surgery years ago. 10. Diarrhea- Resolved Discharge Medications Discharge Medications: Home Medication List amlodipine [Norvasc] 10 mg PO DAILY #30 tab 03/28/21 [Rx] fluconazole [Diflucan] 100 mg PO DAILY 12 Days #12 tab 03/28/21 [Rx] omeprazole [Prilosec] 40 mg PO BID #60 cap 03/28/21 [Rx] Prescriptions: amlodipine [Norvasc] ASHIA JUNIOR fluconazole [Diflucan] ASHIA JUNIOR omeprazole [Prilosec] ASHIA JUNIOR Hospital Course Vital Signs: Temperature 98.4 F Pulse Rate [Right] 80 Pulse Rate [Bilateral Radial] 82 Pulse Rate 71 Respiratory Rate 26 Blood Pressure [Right Arm] 148/67 Blood Pressure 135/66 O2 Sat by Pulse Oximetry 100 Latest Lab Results: Laboratory Last Values WBC 4.3 X10^3/uL (3.6-10.0) 03/27/21 04:35 RBC 4.47 X10^6/uL (3.5-5.4) 03/27/21 04:35 Hgb 10.5 g/dL (12.0-16.0) L 03/27/21 04:35 Hct 33.2 % (36.0-47.0) L 03/27/21 04:35 MCV 74.3 fL (80.0-100.0) L 03/27/21 04:35 MCH 23.5 pg (27.0-34.0) L 03/27/21 04:35 MCHC 31.7 g/dL (33.0-35.0) L 03/27/21 04:35 RDW 14.3 % (11.6-16.5) 03/27/21 04:35 Plt Count 183 X10^3/uL (150.0-450.0) 03/27/21 04:35 Plt Count Comment Adequate (ADEQUATE) 03/27/21 04:35 MPV 8.6 fL (7.4-11.0) 03/27/21 04:35 Neut % (Auto) 46.8 % (42.0-75.0) 03/27/21 04:35 Lymph % (Auto) 42.2 % (21.0-51.0) 03/27/21 04:35 [place] % (Auto) 7.8 % (0.0-13.0) 03/27/21 04:35 Eos % (Auto) 2.5 % (0.9-2.9) 03/27/21 04:35 Baso % (Auto) 0.7 % (0.2-1.0) 03/27/21 04:35 Neut # (Auto) 2.0 x10^3/uL (2.2-4.8) L 03/27/21 04:35 Lymph # (Auto) 1.8 X10^3/uL (1.3-2.9) 03/27/21 04:35 [place] # (Auto) 0.3 x10^3/uL (0.3-0.8) 03/27/21 04:35 Eos # (Auto) 0.1 x10^3/uL (0.0-0.2) 03/27/21 04:35 Baso # (Auto) 0.0 X10^3/uL (0.0-0.1) 03/27/21 04:35 Absolute Nucleated RBC 0.1 /100WBC 03/27/21 04:35 Plt Morphology Comment Normal (NORMAL) 03/27/21 04:35 RBC Morphology Abnormal (NORMAL) A 03/27/21 04:35 Hypochromasia 1+ A 03/27/21 04:35 Microcytosis 1+ A 03/27/21 04:35 Sodium 141 mmol/L (136-145) 03/28/21 04:25 Corrected Sodium TNP 03/28/21 04:25 Potassium 3.7 mmol/L (3.5-5.1) 03/28/21 04:25 Chloride 106 mmol/L (98-107) 03/28/21 04:25 Carbon Dioxide 31.3 mmol/L (21-32) 03/28/21 04:25 BUN 10 mg/dL (7-18) 03/28/21 04:25 Creatinine 0.77 mg/dL (0.55-1.02) 03/28/21 04:25 Est GFR (MDRD) Af Amer > 60 (>60) 03/28/21 04:25 Est GFR (MDRD) Non-Af > 60 (>60) 03/28/21 04:25 Glucose 94 mg/dL (65-99) 03/28/21 04:25 POC Glucose (mg/dL) 76 mg/dL (65-99) 03/27/21 04:22 Calcium 8.5 mg/dL (8.5-10.1) 03/28/21 04:25 Corrected Calcium 9.4 mg/dL (8.5-10.1) 03/28/21 04:25 Iron 118 ug/dL (50-175) 03/26/21 12:35 Transferrin 261 mg/dL (202-364) 03/26/21 12:35 Ferritin 143 ng/mL (8-252) 03/26/21 12:35 Total Bilirubin 0.20 mg/dL (0.2-1.0) 03/28/21 04:25 GGT 81 U/L (7-33) H 03/26/21 08:27 AST 54 Units/L (15-37) H 03/28/21 04:25 ALT 371 Units/L (12-78) H 03/28/21 04:25 Alkaline Phosphatase 126 Units/L (46-116) H 03/28/21 04:25 Total Protein 6.0 g/dL (6.4-8.2) L 03/28/21 04:25 Albumin 2.9 g/dL (3.4-5.0) L 03/28/21 04:25 Globulin 3.1 g/dL (2.5-4.5) 03/28/21 04:25 Albumin/Globulin Ratio 0.9 Ratio (1.1-2.1) L 03/28/21 04:25 [id number] 132 mg/dL (90-200) 03/26/21 12:35 Ceruloplasmin 36 mg/dL (17-54) 03/26/21 12:35 Lipase 75 Units/L (73-393) 03/25/21 21:54 Specimen Type Clean catch urine 03/25/21 21:50 Urine Color Yellow (YELLOW) 03/25/21 21:50 Urine Appearance Clear (CLEAR) 03/25/21 21:50 Urine pH 8.0 (5.0 - 8.0) 03/25/21 21:50 Ur Specific [place] 1.010 (1.000-1.030) 03/25/21 21:50 Urine Protein Negative (NEGATIVE) 03/25/21 21:50 Urine Glucose (UA) Negative (NEGATIVE) 03/25/21 21:50 Urine Ketones Negative (NEGATIVE) 03/25/21 21:50 Urine Occult Blood Negative (NEGATIVE) 03/25/21 21:50 Urine Nitrite Negative (NEGATIVE) 03/25/21 21:50 Urine Bilirubin Negative (NEGATIVE) 03/25/21 21:50 Urine Urobilinogen Normal (NORMAL) 03/25/21 21:50 Ur Leukocyte Esterase Negative (NEGATIVE) 03/25/21 21:50 Stl C. diff Tox B Gene Negative (NEGATIVE) 03/26/21 18:25 Stl C. diff [id number] Presumptive negative (NEGATIVE) 03/26/21 18:25 Stool H. pylori Ag Negative (NEGATIVE) 03/26/21 18:25 JOSUÉ Screen None detected (None Detected) 03/26/21 12:35 JOSUÉ Titer TNP 03/26/21 12:35 JOSUÉ Pattern TNP 03/26/21 12:35 Anti-Mitochondrial Ab 0.8 Units (0.0-24.9) 03/26/21 12:35 Smooth Muscle Ab Titer <1:20 (<1:20) 03/26/21 12:35 Hepatitis A IgM Ab Negative (Negative) 03/25/21 21:54 Hep Bs Antigen Negative (Negative) 03/25/21 21:54 Hep Bs Ag Confirmation TNP 03/25/21 21:54 Hep B Core IgM Ab Negative (Negative) 03/25/21 21:54 Hepatitis C Ab Index 0.04 IV 03/25/21 21:54 Hepatitis C Interp Negative (Negative) 03/25/21 21:54 Hepatitis Interpret See note 03/25/21 21:54 SARS CoV-2 RNA Rapid GRANT Negative (NEGATIVE) 03/25/21 23:10 Tissue Pathology To follow 03/26/21 15:12 Miscellaneous Test Fibrosure 03/26/21 12:35 Hospital Course: Following ED admission the patient continued to have Nausea and vomiting some. Zofran helped some she reports. Gastroenterology was consulted regarding her abnormal LFT's and abdominal pain. She had an EGD performed on her the 2nd hospital day which showed distal esopagitis with stricture and esophageal Candidiasis. Erosive gastritis was also seen. She was put on Omeprazole 40 mg bid. She also had specialty labs drawn per GE. She was give pain relief with pain medication for her acute on chronic LBP. Viral hepatitis panel was negative for B and C. C. Difficile was negative as well as H. Pylori. Ceruloplasmin and Alpha-1 antitrypsin were both negative as well. She does also have Microcytic anemia. I will start her on Ferrous Sulfate when she follows up with me for a hospital follow-up. on the morning on the 3rd hospital day she was feeling better overall. She was discharged home in stable condition. Instructions Instructions: Liver Function Tests Gastritis, Adult Esophageal Dilatation Upper Endoscopy, Care After Nausea and Vomiting, Adult, [id number] Flank Pain, Adult Managing Your Hypertension Esophageal Stricture Forms: Excuse From Work or School Precautions for COVID19 [facility] Social Distancing
== END 2021-03-28 12:28 | disposition home or self-care (01) ==
LOC: U 19:14 → ER 19:14 → U 03-26 05:15 → ICU 03-26 14:07
PROVIDERS: ADMIT Family Medicine; ATTEND Family Medicine
DX: I10 Essential (primary) hypertension; K20.90 Esophagitis, unspecified without bleeding; R13.11 Dysphagia, oral phase; M54.50 Low back pain, unspecified; Z98.84 Bariatric surgery status; R94.5 Abnormal results of liver function studies; B17.9 Acute viral hepatitis, unspecified; K22.2 Esophageal obstruction; M54.2 Cervicalgia; R11.2 Nausea with vomiting, unspecified; B37.81 Candidal esophagitis; K29.60 Other gastritis without bleeding; J39.2 Other diseases of pharynx; R10.84 Generalized abdominal pain; R19.7 Diarrhea, unspecified